=== PATIENT | female | born 1990 | race African-American/Black ===

== ENCOUNTER 2018-02-21 19:33 | Emergency (ER) | payer SELFPAY ==
[~2018-02-21] VITALS: Ht 167.6 cm; Wt 73.0 kg
[2018-02-21] MEDS ORDERED: ALBUTEROL2.5 MG/3 M INH (19:49)
[2018-02-21] MEDS ORDERED: HYDROcodone/Acetamin 7.5/325 tab ORAL ONE (20:00)
--- NOTE | 2018-02-21 20:49 | Emergency Room Report ---
History of Present Illness General Chief Complaint: Skin Rash/Abscess Source: Patient Present Illness HPI 27 YO Female presents to the ED c/o 08/28 in severity localized pain, swelling , and erythema of the right buttock near the rectum. pt. reports tenderness and swelling progressive over 3-4 days. she has been trying hot compresses at home with no relief. denies previous hx of abscess in this area. denies fevers or chills. pt. reports hx of anxiety. pt. also reports THC use. pt. states she has had Sore throat times one day. Denies neck pain or stiffness, tonsillar swelling or cough.Denies CP, Palpitations, LOC, AMS, dizziness, Changes in Vision, Sensation, paresthesias, or a sudden severe headache. Pt. is UTD with tetanus. Allergies: Coded Allergies: KIWI (Verified Allergy, Unknown, 02/21/18) swollen throat Patient History Past Medical History: see triage record Past Surgical History: none Now: No - IUD : 0 Para: 0 Immunizations: UTD Reviewed Nursing Documentation: PMH: Agreed; PSxH: Agreed Nursing Documentation-PMH Past Medical History: No History, Except For Hx Asthma: Yes Review of Systems All Other Systems: negative except mentioned in HPI Physical Exam Vital Signs Date Time Temp Pulse Resp B/P (MAP) Pulse Ox O2 Delivery O2 Flow Rate FiO2 02/21/18 19:45 98.5 120 18 101/62 97 Room Air 98.4 Sp02 EP Interpretation: reviewed, normal General Appearance: alert, GCS 15, non-toxic, moderate distress Head: normocephalic, atraumatic ENT: hearing grossly normal, normal pharynx, normal voice, TMs + canals normal , uvula midline, pharyngeal erythema, other - no exudates Neck: full range of motion, no meningismus Respiratory: lungs clear, normal breath sounds, no respiratory distress, no wheezing, speaking full sentences Cardiovascular #1: regular rate, rhythm, tachycardia Rectal: other - 4cm right inner buttock abscess just outside of the rectal boarder, erythema is almost 2 inches in diameter. fluctuance is palpated. Genitourinary: normal inspection Musculoskeletal: back normal, gait/station normal, normal range of motion, non- tender Neurologic: alert, oriented x3, responsive, motor strength/tone normal, sensory intact, speech normal, grossly normal Psychiatric: judgement/insight normal Skin: no rash, warm/dry, well hydrated, other - 4cm right inner buttock abscess just outside of the rectal boarder, erythema is almost 2 inches in diameter. fluctuance is palpated. Procedures Incision and Drainage Incision and Drainage : Consent: Verbal Site: right inner buttock Blade Size: 11 I & D Procedure: betadine prep, sterile drapes applied, sterile dressing applied Wound Location: other - right inner buttock Wound's Depth, Shape: superficial Wound Length (cm): 1 Wound Explored: contaminated - moderate amount of purulent d/c was expressed. Anesthesia: 1% Lidocaine Volume Anesthetic (ccs): 2 Splint Applied?: No Sling Applied?: No Patient Tolerated: Well Complications: None Medical Decision Making PA Attestation Dr. Presley is my supervising Physician whom patient management has been discussed with. Diagnostic Impression: Primary Impression: Abscess Additional Impression: Sore throat ER Course Pt. presents to the ED c/o 08/28 in severity localized pain, swelling, and erythema of the right buttock near the rectum. pt. reports tenderness and swelling progressive over 3-4 days. she has been trying hot compresses at home with no relief. denies previous hx of abscess in this area. denies fevers or chills. pt. reports hx of anxiety. pt. also reports THC use. pt. states she has had Sore throat times one day. Denies neck pain or stiffness, tonsillar swelling or cough.Denies CP, Palpitations, LOC, AMS, dizziness, Changes in Vision, Sensation, paresthesias, or a sudden severe headache. Pt. is UTD with tetanus. Ddx considered but are not limited to cellulitis, abscess, cystic acne, necrotizing fasciitis, insect bite, pharyngitis, strep throat, perianal fistula/ abscess. Vital signs: Pt tachycardic, pt. is afebrile H&PE are most consistent with right buttock abscess. - just distal to the rectal border. No tonsillar swelling or exudates, mild cobble-stone appearance. ORDERS: none required at this time, the diagnosis is clinical ED INTERVENTIONS: -I & D. DISCHARGE: At this time pt. is stable for d/c to home. Will provide printed patient care instructions, and any necessary prescriptions. Care plan and follow up instructions have been discussed with the patient prior to discharge. Last Vital Signs Date Time Temp Pulse Resp B/P (MAP) Pulse Ox O2 Delivery O2 Flow Rate FiO2 02/21/18 19:45 98.5 120 18 101/62 97 Room Air 98.4 Disposition: HOME, SELF-CARE Condition: Stable Scripts Bacitracin/Polymyxin B Sulfate (BACITRACIN-POLYMYXIN OINTMENT) 28.35 Gm Oint...g. 1 APPLIC TP BID, #28.3 GM Prov: Kimberlee Bueno 02/21/18 Hydrocodone Bit/Acetaminophen 5-325* (NORCO 5-325*) 1 Each Tablet 1 TAB ORAL Q6H PRN for For Pain, #6 TAB 0 Refills Prov: Kimberlee Bueno 02/21/18 Amoxicillin/Potassium Clav 875-125* (AUGMENTIN 875-125 TABLET*) 1 Each Tablet 1 TAB ORAL TWICE A DAY for 7 Days, #14 TAB Prov: Kimberlee Bueno 02/21/18 Patient Instructions: Abscess, Sore Throat, Nvel-sy-Ravr Additional Instructions: Take medications as directed. Follow up with a Primary Care Provider in 3-5 days, even if your symptoms have resolved. --Please review list of primary care clinics, if you do not already have a primary care provider Return sooner to ED if new symptoms occur, or current symptoms become worse. Do not drink alcohol, drive, or operate heavy machinery while taking [place] as this may cause drowsiness. - Please note that this Emergency Department Report was dictated using [employer] quality methods specialist technology software, occasionally this can lead to erroneous entry secondary to interpretation by the dictation equipment. Kimberlee Bueno Feb 21, 2018 20:49
[2018-02-21] MEDS ORDERED: BACITRACIN-P28.35 GM TP (20:54)
[2018-02-21] MEDS ORDERED: NORCO 5-325 TA1 EACH ORAL (20:54)
[2018-02-21] MEDS ORDERED: AUGMENTIN 875-1 EAC1 ORAL (20:54)
[2018-02-21 21:00] VITALS: BP 110/62
== END 2018-02-21 21:00 | disposition home or self-care (01) ==
LOC: EMR 21:00
DX: L02.31 Cutaneous abscess of buttock (principal); R07.0 Pain in throat; J45.909 Unspecified asthma, uncomplicated; Z91.018 Allergy to other foods
CPT/HCPCS: 10060; 99284